=== PATIENT | female | born 1995 | race African-American/Black ===

== ENCOUNTER 2018-05-30 12:38 | Observation (INO) | payer OTHER ==
[2018-05-30] MEDS ORDERED: IV RINGERS,LACTATED 1000ML 1,000 ML IV (14:00)
== END 2018-05-30 14:10 | disposition home or self-care (01) ==
LOC: 3 SO LND 12:38
DX: O26.892 Other specified pregnancy related conditions, second trimester (principal); O99.89 Other specified diseases and conditions complicating pregnancy, childbirth and the puerperium; R10.9 Unspecified abdominal pain; R10.2 Pelvic and perineal pain; M54.9 Dorsalgia, unspecified; Z3A.23 23 weeks gestation of pregnancy
CPT/HCPCS: G0378; G0379